=== PATIENT | female | born 1935 | race Caucasian/White ===

== ENCOUNTER 2016-10-08 13:51 | Emergency (ER) | payer MEDICARE, OTHER ==
[2016-10-08 14:26] VITALS: BP 177/91
--- NOTE | 2016-10-08 16:08 | EDM.PDOC ---
ED HPI GENERAL MEDICAL PROBLEM - General Chief Complaint: Respiratory Problem Stated Complaint: SORE THROAT NO VOICE HEADACHE Time Seen by Provider: 10/08/16 14:16 Source of Information: Reports: Patient History Limitations: Reports: No Limitations - History of Present Illness INITIAL COMMENTS - FREE TEXT/NARRATIVE: This patient complains of a sore throat. She lost her voice yesterday. She's had symptoms for about 3 days she's had some chills and nausea but denies fever. She's been around a lot of visitors who had sore throats and cough. - Related Data Allergies Allergy/AdvReac Type Severity Reaction Status Date / Time tramadol AdvReac Nausea and Verified 02/17/14 06:39 Vomiting Home Meds: Home Meds Acetaminophen [Acetaminophen Extra Strength] 1,000 mg PO Q6H PRN 12/06/13 [ History] Calcium Carbonate/Vitamin D3 [Calcium 600 + Vit D 400 Softgl] 1 tab PO DAILY 07/22 [History] Hydrocodone/Acetaminophen [Hydrocodon-Acetaminophen 5-325] 1 tab PO Q6HR PRN 07/22 [History] L.acidoph,Paracasei, B.lactis [Probiotic] 1 tab PO DAILY 10/08/16 [History] Multivitamin [Multi-Day Vitamins] 1 tab PO DAILY 10/08/16 [History] Omeprazole 20 mg PO DAILY 10/08/16 [History] Prednisone [IJD: Prednisone] 1 tab PO DAILY 10/08/16 [History] Past Medical History HEENT History: Reports: Cataract, Impaired Vision Cardiovascular History: Reports: Heart Murmur Gastrointestinal History: Reports: Cholelithiasis Musculoskeletal History: Reports: Back Pain, Chronic, Fracture, Osteoarthritis, Osteoporosis Oncologic (Cancer) History: Reports: Basal Cell Carcinoma, Bladder - Infectious Disease History Infectious Disease History: Reports: Chicken Pox, Measles, Mumps - Past Surgical History HEENT Surgical History: Reports: Cataract Surgery, Tonsillectomy GI Surgical History: Reports: Appendectomy, Cholecystectomy Social & Family History - Tobacco Use Smoking Status *Q: Former Smoker Years of Tobacco use: 3 Packs/Tins Daily: 0.5 Used Tobacco, but Quit: Yes Month Tobacco Last Used: april Second Hand Smoke Exposure: Yes - Caffeine Use Caffeine Use: Reports: Coffee - Alcohol Use Days Per Week of Alcohol Use: 0 - Recreational Drug Use Recreational Drug Use: No ED ROS GENERAL - Review of Systems Review Of Systems: ROS reveals no pertinent complaints other than HPI. ED EXAM, GENERAL - Physical Exam Exam: See Below Exam Limited By: No Limitations General Appearance: Alert, WD/WN Eye Exam: Bilateral Eye: Normal Inspection Throat/Mouth: Other (Hoarse voice.). No: Inflammation Head: Atraumatic Neck: Normal Inspection Respiratory/Chest: Lungs Clear Cardiovascular: Normal Peripheral Pulses, Regular Rate, Rhythm GI/Abdominal: Non-Tender Extremities: No Pedal Edema Neurological: Alert, Oriented Course - Vital Signs Last Recorded V/S: Last Vital Signs Temp 37.7 C 10/08/16 14:36 Pulse 98 10/08/16 14:36 Resp 16 10/08/16 14:36 BP 177/91 H 10/08/16 14:36 Pulse Ox 97 10/08/16 14:36 - Orders/Labs/Meds Orders: Active Orders 24 hr Category Date Time Status Chest 2V [CR] Urgent Exams 10/08/16 14:54 Ordered Labs: Laboratory Tests 10/08/16 Range/Units 15:04 WBC 10.3 (4.5-11.0) K/uL RBC 4.02 (3.30-5.50) M/uL Hgb 12.8 D (12.0-15.0) g/dL Hct 40.1 (36.0-48.0) % MCV 100 H (80-98) fL MCH 32 H (27-31) pg MCHC 32 (32-36) % Plt Count 161 (150-400) K/uL Neut % (Auto) 76 H (36-66) % Lymph % (Auto) 9 L (24-44) % Winston % (Auto) 12 H (2-6) % Eos % (Auto) 3 (2-4) % Baso % (Auto) 0 (0-1) % - Radiology Interpretation Free Text/Narrative:: Chest x-ray shows normal heart size normal lung markings Departure - Departure Time of Disposition: 16:06 Disposition: Home, Self-Care 01 Condition: fair Clinical Impression: Strep pharyngitis - Discharge Information Forms: ED Department Discharge Additional Instructions: Take penicillin VK 500 mg twice daily for 10 days. This is for strep. Feel free to use any [id number] cough medication. Tylenol tends to help a lot with sore throats - My Orders Last 24 Hours: My Active Orders 10/08/16 14:54 Chest 2V [CR] Urgent - Assessment/Plan Last 24 Hours: My Active Orders 10/08/16 14:54 Chest 2V [CR] Urgent
--- NOTE | 2016-10-10 09:38 | CR ---
Chest 2V FINDINGS: The heart and vascular structures are normal in appearance. No infiltrates or effusions ar e demonstrated. The skeletal structures are unremarkable. IMPRESSION: Negative exam.
== END 2016-10-08 16:10 | disposition home or self-care (01) ==
LOC: JP.ED 13:51
DX: J02.0 Streptococcal pharyngitis (principal); M19.90 Unspecified osteoarthritis, unspecified site; Z90.49 Acquired absence of other specified parts of digestive tract; Z98.49 Cataract extraction status, unspecified eye; Z98.890 Other specified postprocedural states; Z87.891 Personal history of nicotine dependence; Z85.828 Personal history of other malignant neoplasm of skin; Z85.51 Personal history of malignant neoplasm of bladder; Z79.899 Other long term (current) drug therapy; Z88.8 Allergy status to other drugs, medicaments and biological substances
CPT/HCPCS: 36415; 71020; 71020-26; 85025; 87430; 99283; 99284